=== PATIENT | male | born 1995 ===

== ENCOUNTER 2023-12-02 10:45 | Inpatient (IN) | payer MEDICAID ==
[~2023-12-02] VITALS: Ht 175.3 cm; Wt 66.2 kg
[2023-12-02] MEDS ORDERED: SYMMETREL100 MG PO (11:51)
[2023-12-02] MEDS ORDERED: NEURONTIN100 MG/CAP PO (11:52)
[2023-12-02] MEDS ORDERED: OXYCODONE H5 MG/5 ML PO (11:53)
[2023-12-02] MEDS ORDERED: DESYREL 50MG50 MG PO (11:54)
[2023-12-02] MEDS ORDERED: SEROQUEL 1100 MG/TAB PO (11:54)
[2023-12-02] MEDS ORDERED: TYLENOL 500MG500 MG PO (11:58)
[2023-12-02 15:31] VITALS: BP 127/76; PULSE 80; TEMP 98
[2023-12-02] MEDS ORDERED: Sennosides/Docusate 8.6-50 MG TAB PO PRN (16:15)
[2023-12-02] MEDS ORDERED: Acetaminophen 500 MG TAB PO PRN (16:15)
[2023-12-02] MEDS ORDERED: Polyethylene Glycol 3350 17 GM PDS PO PRN (16:15)
[2023-12-02] MEDS ORDERED: Naloxone 0.4 MG/ML VIAL IV PRN (16:15)
[2023-12-02] MEDS ORDERED: Docusate Sodium 100 MG CAP PO PRN (16:15)
[2023-12-02] MEDS ORDERED: SEROQUEL 2525 MG/TAB PO (16:20)
[2023-12-02] MEDS ORDERED: oxyCODONE Oral Soln 5 MG/5 ML UD PO PRN (16:30)
[2023-12-02 17:00] VITALS: BP_SYST 127
--- NOTE | 2023-12-02 18:10 | NUR ---
PATIENT BLADDER SCANNED AND 663ML FOUND, STRAIGHT CATH AND RECEIVED 600ML. PATIENT TOLERATED WELL.
[2023-12-02 21:00] VITALS: BP_SYST 127
[2023-12-02] MEDS ORDERED: traZODone 50 MG TAB PO SCH (21:00)
[2023-12-02] MEDS ORDERED: Gabapentin 100 MG CAP PO SCH (21:00)
[2023-12-02] MEDS ORDERED: QUEtiapine 100 MG TAB PO SCH (21:00)
--- NOTE | 2023-12-02 22:06 | NUR ---
NURSING SHIFT ASSESSMENT COMPLETED. THE PATIENT WAS ALERT AND ORIENTED TO SELF. THE PATIENT HAS COGNITIVE DEFICITS AND DIFFICULTY WITH WORD FINDING SO IT IS DIFFICULT TO KNOW HOW ORIENTED THE PATIENT IS. WHEN SPEAKING WITH THE PATIENT HE WOULD TALK ABOUT HIS PAST AND PER HIS SPOUSE SOME OF WHAT THE PATIENT SAID WAS CORRECT. THE PATIENT WAS TEARFUL AND STATED THAT "BAD THINGS WERE HAPPENING." THE PATIENT WAS REASSURED THAT HE WAS IN A SAFE PLACE AND THAT HE WAS HERE TO GET BETTER. THE PATIENT DID NOT APPEAR TO BE IN ANY PAIN OR DISCOMFORT. EVENING MEDICATIONS WERE REVIEWED AND THE PLAN OF CARE WAS DISCUSSED. THE SPOUSE IS STAYING THE NIGHT WITH THE PATIENT TONIGHT. BED ALARM ON, BED IN LOW POSITION, PERSONAL BELONGINGS AND CALL LIGHT WITHIN REACH.
--- NOTE | 2023-12-03 01:02 | NUR ---
THE PATIENT WAS BLADDER SCANNED AT 0030. 984 ML OF URINE NOTED ON THE BLADDER SCAN. THE PATIENT WAS STRAIGHT CATHED AND 1100 ML OF CLEAR, YELLOW URINE WAS OBTAINED. THE PATIENT TOLERATED THE PROCEDURE WELL. STERILE TECHNIQUE WAS USED. WILL MONITOR.
[2023-12-03 05:20] VITALS: BP 120/81; PULSE 68; TEMP 97.1
--- NOTE | 2023-12-03 05:45 | NUR ---
THE PATIENT RESTED WELL OVERNIGHT. HIS SPOUSE REMAINED AT THE BEDSIDE. THE BLADDER SCAN THIS MORNING AT 5:15 AM WAS 197 ML. NO STRAIGHT CATH WAS PERFORMED SINCE HIS URINE AMOUNT WAS LESS THAN 400 ML. NURSING WILL CONTINUE TO FOLLOW WITH BLADDER SCANS AND STRAIGHT CATH'S PER ORDERS.
[2023-12-03] MEDS ORDERED: Nicotine 14 MG DAILY PATCH TD SCH (09:00)
[2023-12-03] MEDS ORDERED: QUEtiapine 25 MG TAB PO SCH (09:00)
--- NOTE | 2023-12-03 09:33 | NUR ---
SHIFT ASSESSMENT COMPLETE. VSS. PATIENT UP WORKING WITH OT, AT BEDSIDE. ALL MORNING MEDS GIVEN PER ORDERS. NO COMPLIANTS OR REQUEST FROM PATIENT OR AT THIS TIME.
--- NOTE | 2023-12-03 14:08 | NUR ---
SW met with patient and in room to complete initial assessment for discharge planning. Patient did participate in conversation and was able to answer some questions. Patient's , Kyle ([phone]) answered most questions. Kyle provided copy of temporary Guardianship paperwork that was completed at the original hospital in [place]. Copy of Guardianship paperwork placed on chart. verified that they live in [place] with their 3 year old son. Kyle is 28 weeks with a high risk . She states that patient's father, nAdrea Avalos is very involved and will be helping with patient care. shared that they are moving into Andrea's house so they have help. Andrea's house has wheelchair ramps and no steps within. shared that their rent is paid through an assistance program through January to allow her time to move their belongings. Patient does not have a PCP, uses [facility] in [place]. Patient has multiple DME at home at was for his mother. DME includes: wheelchair, hospital bed, BSC, toilet riser, shower chair and grab bars. shared that patient was applied for SSDI and she has an appointment with Social Security on 12/19/2023. SW discussed notes from interdisciplinary meeting held earlier today with treatment team. All questions answered. Discharge plan: re-eval
[2023-12-03 17:54] VITALS: BP 114/72; PULSE 77; TEMP 98.3
--- NOTE | 2023-12-03 19:00 | NUR ---
Received change of fit report from day shift nurse. Bladder scan and straight performed by off going day shift nurse with report st cath of 650 ml that patient tolerated well as reported by day shift nurse. Patient resting in bed with in room, exit alarm off due to laying in bed with patient at times to help with patient's anxiety and impulsivity as reported by day shift nurse that dept director is aware of activity.
--- NOTE | 2023-12-03 19:49 | NUR ---
BLADDER SCANNED AT 1854 690ML SHOWEN. STRAIGHT CATHED AND RECEIVED 650ML. PATIENT TOLERATED WELL.
--- NOTE | 2023-12-03 20:21 | NUR ---
PATIENT RESTING IN BED, MOVES ALL EXTREMITIES EQUALLY, LEFT FOREARM CAST IN PLACE. PATIENT ON ROOM AIR, IN ROOM. BED ALARM OFF DUE TO IN ROOM, LAYING IN BED WITH PATIENT AT TIMES. CALL LIGHT IN PLACE. STAYS OVERNIGHT IN ROOM WITH PATIENT DUE TO IMPULSIVE BEHAVOIR AND ANXIETY FROM PATIENT IF NOT PRESENT.
[2023-12-04 05:49] VITALS: BP 117/79; PULSE 68; TEMP 96.8
--- NOTE | 2023-12-04 07:32 | NUR ---
Change of shift report given to day shift nurseCamille.
--- NOTE | 2023-12-04 08:00 | NUR ---
SHIFT ASSESSMENT COMPLETE. VSS. PATIENT RESTING IN BED AFTER BREAKFAST. AT BED SIDE. ALL MORNING MEDS GIVEN PER ORDERS. PATIENT STATES YES WHEN ASKED IF BELLY HURTS THIS AM. PATIENT PASSING GAS BUT HAS NOT HAD A BM SINCE 11/29, MEDS GIVEN ON COMPANY MANAGER TO HELP WITH BM. WILL CONTINUE TO MONITOR. GTUBE FLUCHED THIS AM WITH 30ML OF WATER. PATIENT TOLERATED WELL. FALL PRECAUTIONS IN PLACE AND CALL LIGHT IN REACH.
--- NOTE | 2023-12-04 13:37 | NUR ---
Initial visit; Patient quietly stated that he would like prayer and reached for Loss Prevention Representative's hand. prayed and wished patient healing and told him she would come back and look in on him and keep him in her prayers in the mean-time. He thanked .
--- NOTE | 2023-12-04 17:00 | NUR ---
PATIENT BLADDER SCANNED FOUND 663 ML TO BE IN BLADDER. STRAIGHT CATH AND EMPTIED 675. PATIENT TOLERATED WELL.
[2023-12-04 17:52] VITALS: BP 121/76; PULSE 84; TEMP 98.5
--- NOTE | 2023-12-04 19:27 | NUR ---
RECEIVED CHANGE OF SHIFT REPORT FROM DAY SHIFT NURSE. PATIENT RESTING IN BED, EXIT ALARM ON, CALL LIGHT WITHIN PATIENT'S REACH. NO FAMILY IN ROOM, PATIENT DENIES ANY PAIN AT THIS TIME.
--- NOTE | 2023-12-04 20:00 | NUR ---
Patient cooperative at this time, denies any needs. No visitors present at this time. Resting in bed with exit alarm on, call light within patient's reach.
--- NOTE | 2023-12-04 23:06 | NUR ---
Patient's present, to stay the night. Patient slept through bladder scan and straight cath, no observed signs of discomfort, patient did not wake during bladder scan/straight cath procedure. Bed exit alarm on, call light within patient and 's reach.
--- NOTE | 2023-12-05 03:12 | NUR ---
Patient resting in bed, eyes closed with even/nonlabored breathing observed. Bed exit alarm on, call light within reach of patient or patient's .
[2023-12-05 05:33] VITALS: BP 114/77; PULSE 73; TEMP 98.1
--- NOTE | 2023-12-05 07:23 | NUR ---
Change of shift report given to day shift nurseCamille.
--- NOTE | 2023-12-05 07:55 | NUR ---
SHIFT ASSESSMENT COMPLETE. VSS. PATIENT AMBULTED TO RECLINER FOR BREAKFAST WITH 1 ASSIST. AT BEDSIDE. ALL MORNING MEDS GIVEN PER ORDERS. PATIENT STATES NO PAIN WHEN ASKED. FALL PRECAUTIONS IN PLACE AND CALL LIGHT IN REACH.
[2023-12-05] MEDS ORDERED: Lidocaine 2% (20 MG/ML) 20 ML UROJET UR PRN (11:15)
--- NOTE | 2023-12-05 11:51 | NUR ---
BLADDER SCANED @1145 523ML. PATIENT STRAIGHT CATH 500ML OUT. PATIENT TOLERATED WELL.
--- NOTE | 2023-12-05 11:52 | NUR ---
GTUBE FLUSHED W/ 30ML WATER. PATIENT TOLERATED WELL.
--- NOTE | 2023-12-05 13:45 | NUR ---
burlap worker met with pt who was sleeping and , Sheree to assess for any needs. She reports no needs from social worker health services at this time. Discharge Plan: re-eval
--- NOTE | 2023-12-05 13:50 | NUR ---
PATIENT SLEEPING WITH AT BEDSIDE. BED ALARM ON AND CALL LIGHT IN REACH.
--- NOTE | 2023-12-05 15:20 | NUR ---
Admission QIM scores were reviewed by the team. Code of 88 chosen for oral hygiene was determined by team discussion to be the most usual performance before interventions for this patient during the assessment period. Code of 88 chosen for toileting hygiene was determined by team discussion to be the most usual performance for this patient during the discharge assessment period. Code of 6 chosen for rolling left to right was determined by team discussion to be the most usual performance before interventions for this patient during the assessment period. Code of 4 chosen for sit to lying was determined by team discussion to be the most usual performance before interventions for this patient during the assessment period. Code of 4 chosen for lying to sitting side of bed was determined by team discussion to be the most usual performance before interventions for this patient during the assessment period. Code of 1 chosen for sit to stand was determined by team discussion to be the most usual performance for this patient during the discharge assessment period. Code of 1 chosen for chair to bed was determined by team discussion to be the most usual performance for this patient during the discharge assessment period.--Dian Woods, PD
--- NOTE | 2023-12-05 15:30 | NUR ---
PATIENT STILL SLEEPING AT THIS TIME. STILL AT BEDSIDE. BED ALARM ON AND CALL LIGHT IN REACH
--- NOTE | 2023-12-05 16:22 | NUR ---
BLADDER SCANNED PATIENT 331ML, NO ACTION NEEDED ACCORDING TO ORDERS WILL BLADDER SCAN AGAIN IN A FEW HOURS.
[2023-12-05 17:15] VITALS: BP 116/76; PULSE 89; TEMP 98.5
--- NOTE | 2023-12-05 21:30 | NUR ---
patient lying in bed, alert and oriented x4 with some occasional forgetfullness. ambulated to bathroom x1 assist with gait belt, slight lean towards right side, large semiformed brown BM passed with some effort, pt refused offered stool softner at this time. bladder scan resulted with 557ml shown, pt reports feeling pressure and ready for it to be gone, straight cath performed, 500ml drained from bladder. PEG tube site CDI. Bandaid to tracheal are of the neck is CDI. pt has no further needs, questions, or concerns at this time. at bedside. fall precautions in place, call light within reach. will continue to monitor.
[2023-12-06 05:38] VITALS: BP 110/71; PULSE 73; TEMP 97.8
--- NOTE | 2023-12-06 16:15 | NUR ---
PT REPORTED TO INSTRUMENT MECHANICS SUPERVISOR AND PCT THAT HE FELT LIKE HE WAS DYING. WHEN ASKED WHY HE FELT THAT WAY HE STATED BECAUSE OF HIS FAMILY. HE STATED THAT HIS FAMILY MAKES COMMENTS THAT MAKE HIM FEEL LIKE HE IS DYING AND LIKE THEY WANT HIM TO . PT WOULD NOT GO INTO FURTHER DETAIL ABOUT THIS. INSTRUMENT MECHANICS SUPERVISOR ASKED PATIENT IF HE DID NOT WANT THEM TO VISIT SINCE THEY MADE HIM FEEL THIS WAY AND TOLD HIM THAT IT IS HIS RIGHT TO DECIDE WHO CAN AND CAN'T VISIT HIM. HE STATED THAT HE DID NOT WANT THEM TO VISIT FOR A FEW DAYS. INSTRUMENT MECHANICS SUPERVISOR TOLD HIM THAT THAT WAS OKAY AND TO JUST INFORM STAFF WHEN/IF HE WANTED THEM TO START VISITING AGAIN DOWN THE ROAD. CHARGE NURSE WAS NOTIFIED AND REGISTARTION WAS MADE AWARE WELL. PT ALSO EXPRESSED CONCERNS ABOUT HIS PROGRESS WHILE BEING HERE SO FAR AND THAT HE FEELS LIKE HE IS GETTING WEAKER INSTEAD OF STRONGER.
[2023-12-06 18:00] VITALS: BP 124/79; PULSE 81; TEMP 98.2
--- NOTE | 2023-12-06 22:06 | NUR ---
patient lying in bed alert and oriented x4 with some occasional forgetfullness. denies chest pain and shortness of breath. 2030- pt up to bathroom, luna noted to be pulled out and knotted in multiple places, pt verbally confirmed actions, educated pt on luna purposes and placing a new luna, pt refused new luna cath. bladder scan showed 52 ml left over after luna being pulled out. PEG tube CDI, flushed with 120 mls or free water. ambulated to bathroom x1 assist and gait belt, unsteady gait, small bowel movement performed. 2100- Shameka, METAL DRESSER notified of pt pulling luna cath out and refusing new one place, orders to continue bladder scans and monitoring urine retention at this time. cast to left forearm intact, CDI. pt has no further needs, questions or concerns at this time. fall precautions in place, call light within reach. will continue to monitor.
[2023-12-07 05:29] VITALS: BP 116/74; PULSE 69; TEMP 97.7
--- NOTE | 2023-12-07 11:45 | NUR ---
PT HAD REPORTED YESTERDAY THAT HE DID NOT WANT VISITORS UNTIL FURTHER NOTICE. PATIENT THEN EXPRESSED THIS SAME WISH AGAIN THIS MORNING. ER ADMISSIONS DESK HAD BEEN NOTIFIED BY CHARGE NURSE ON 12/06/23. ER ADMISSIONS APPARENTLY DID NOT PASS THIS ALONG AND ALLOWED PT PARENTS TO COME UP TO THE FLOOR. HIDE AND SKIN COLERER TOLD PARENTS BEFORE THEY ENTERED THE ROOM THAT HE DID NOT WANT VISITORS AT THIS TIME AND THAT HIDE AND SKIN COLERER HAD SANCHEZ DTHE TO TELL HER THIS PRIOR. THEY DID NOT CARE AND WENT INTO THE ROOM ANYWAY. CHARGE NURSE WAS NOTIFIED. VICKY FROM SECURITY WAS ON THE FLOOR ALREADY AT THIS TIME AND DOING ROUNDS. HIDE AND SKIN COLERER TOLD HIM ABOUT THE SITUATION. VICKY TRIED TO TALK TO THE FAMILY ABOUT THIS AND THEY BECAME VERY HOSTILE AND THREATENED TO REMOVE PATIENT FROM THE FACILITY. VICKY SAID TO ALLOW THEM TO STAY AT THIS TIME HE ASKED THE PATIENT AND HE SAID THEY COULD STAY. PATIENT SEEMS VERY HESITANT IN HIS DECISION. PATIENT SEEMED LIKE HIS DECISION TO SAY YES WAS FORCED DUE TO PARENTS ALREADY BEING PRESENT IN THE ROOM. PATIENT PARENTS SHOW NO REGARD FOR HIS OWN MENTAL CAPACITY OR CHOICES. PATIENT FATHER CALLED PT AND COMPLAINED ABOUT THE SITUATION. THEN PT FATHER CAME OUT TO THE DESK TO CONFRONT HIDE AND SKIN COLERER ABOUT HAVING SECURITY COME UP TO THE ROOM. HIDE AND SKIN COLERER INFORMED FATHER THAT HIDE AND SKIN COLERER DID NOT CALL SECURITY AND THAT HE WAS ALREADY ON THE FLOOR, HIDE AND SKIN COLERER ONLY TOLD SECURITY ABOUT THE SITUATION AND HE CAME TO TALK TO THEM. THAT WAS IT. PT FATHER MADE THREATS TO PULL PATIENT OUT OF THE REHAB UNIT RELATED TO THIS. FLAMER SEALER MAYDA AND POISER IVON WERE MADE AWARE OF THIS AND ARE IN SPEAKING WITH THE PATIENT AND THE FAMILY AT THIS TIME.
--- NOTE | 2023-12-07 13:03 | NUR ---
SW informed early this morning by RN that patient appears upset today and is stating he doesn't want his family to visit. RN stated that patient was sleeping at that time. SW informed RN that visit would be made later in the day to allow patient to rest. SW entered unit to witness patient's father arguing with RN at desk and threatening to remove patient from hospital. DOMINIC spoke with RN who stated that parents were allowed up to room by ED admissions and insisted on going into patient's room against RN informing them of patient's requests earlier today. DOMINIC asked that Airborne And Air Delivery Specialist be called for assistance. SW entered room where patient's father was standing next to bed talking with patient. His finance was present in room as well. Patient looked at SW and stated "my family can come any time. I'm sorry." SW provided support to patient and informed him that if he wants to be left alone and rest at any time we can accomodate this need with DO NOT DISTURB sign for door. Patient voiced understanding. Father introduced himself to DOMINIC and stated his belief that patient was upset because had gone home for the weekend to be with their son and prepare for doctor's appointment for herself. SW explained that the goal is for patient to not be upset and to be allowed to rest. Father voiced his frustration with RN and stated "she's rude". SW explained that the RN was advocating for her patient and supporting his wishes. Patient calm and stating father can stay for visit.
[2023-12-07 16:08] VITALS: BP 125/78; PULSE 81; TEMP 98.4
--- NOTE | 2023-12-07 16:40 | NUR ---
AROUND 1600 PT HAD AN UNASSISTED FALL DIRECTOR OF RADIOLOGY WAS AT THE NURSES STATION DESK AND HEARD THE BED ALARM START TO BEEP, IMMEDIATLY GOT UP AND WENT TO PT ROOM. DIRECTOR OF RADIOLOGY CROSSED THE THRESHOLD OF THE DOOR THE PT WAS ALREADY STANDING AND FALLING, PT FELL BACK AGAINST THE WALL AND HIT HIS HEAD ON THE WALL. DIRECTOR OF RADIOLOGY TOLD PATIENT TO STAY ON THE FLOOR WHILE HELP CAME TO GET BACK INTO BED. DIRECTOR OF RADIOLOGY THEN CALLED CHARGE NURSE TO SEND PCT TO ASSIST- WHILE THIS WAS HAPPENING PT SAT UP ON HIS KNEES, DIRECTOR OF RADIOLOGY TOLD HIM TO JUST STAY STILL, PT THEN FELL OVER BACK ONTO THE FLOOR. DIRECTOR OF RADIOLOGY ASKED PT WHERE HE WAS TRYING TO GO AND HE STATED "TO THE COUCH" REFERENCING TO BENCH/COUCH IN ROOM IN FRONT OF THE WINDOW. PCT CAME AND ASSISTED DIRECTOR OF RADIOLOGY WITH GETTING THE PT OFF THE FLOOR AND INTO THE RECLINER-CHAIR ALARM WAS PRESENT AND ARMED. VITAL SIGNS WERE THEN TAKEN AND FOUND TO BE IWTHIN NORMAL LIMITS. MACHINE PECAN GATHERER WAS CONTACTED AND SO WAS THE HIOOSPITALIST. PT OFFERED NO COMPLAINTS OF PAIN ANYWHERE AND HAD NO PHYSICAL INJURIES. NO NEW ORDERS AT THIS TIME FROM THE HOSPITALIST. NURSING TEAM DECIDED TO INITIATE A TELESITTER.
--- NOTE | 2023-12-07 16:49 | NUR ---
PT HAS BEEN REFUSING BLADDER SCANNING AND STRAIGHT CATHS THROUGHOUT THE SHIFT. HE DID URINATE ON HIS OWN ONCE THIS SHIFT AND GOT OUT 900ML. STAFF HAS ENCOURAGED HIM TO TRY TO URINATE ON HIS OWN MORE IF ABLE, BUT HE HAS REFUSED.
[2023-12-07 17:02] VITALS: BP 112/76; PULSE 80; TEMP 98.1
--- NOTE | 2023-12-07 19:40 | NUR ---
DURING BEDSIDE REPORT, URINE RETENSION WAS VOICED BY DAYSTXFT NURSE, RUTHIE. 600MLS WAS OBSERVED DURING BLADDER SCAN. HOWEVER ADMIST REPORT, GLADIS URINATED AND SATURATED ENTIRE BED. PATIENT WAS COOPERATIVE AND ATTEMPTED SELF CARES. FULL LINEN AND PERICARE PERFORMED.
--- NOTE | 2023-12-07 19:43 | NUR ---
PATIENT HAD BOWEL MOVEMENT THAT WAS SOFT AND FORMED. HE DID NOT UTILIZE CALL LIGHT BUT ATTEMPTED TO GIVE SELF CARES INDEPENDENTLY. HE APOLOGIZED AND THANKED NURSING STAFF AND PCT NUMEROUS TIMES. ASSISTED WITH PERICARE AND LINEN CHANGE. THE DESIRE FOR PATIENT TO BE SELF SUFFICIENT IS EVIDENT, UNFORTUNATELY, MOTOR COORDINATION AND COGNITION IMPAIRED.
[2023-12-07 20:24] VITALS: BP 119/82; PULSE 81; TEMP 98.6
--- NOTE | 2023-12-07 20:26 | NUR ---
AT 20:00 THIS NURSE OBSERVED PATIENT TRING TO GET OUT OF BED WHILE AT NURSE'S STATION, BEFORE BED ALARM WAS SOUNDED. THIS NURSED YELLED AT PATIENT, "DO NOT GET OUT OF BED." AND RAN INTO ROOM. UNFORTUNATELY, PATIENT FELL AND STRUCK HEAD ON BEDSIDE RECLINER. SMALL ABRASION NOTED OVER RT EYE. CALL IMMEDIATELY PLACED TO CHARGE NURSE, TOBACCO WETTER AND HOSPITALIST ZANA. TORB FOR STAT CT AND A ONE-ON-ONE SITTER TELE SITTER DID NOT NOTIFY THIS NURSE OR SOUND ALARM PATIENT WAS ATTEMPTING TO EXIT BED. ALL NECESSARY FALL PRECAUTIONS WERE IN PLACE THAT DID NOT CAUSE RESTRAINT.
--- NOTE | 2023-12-07 20:39 | NUR ---
AT 20:15 RECIEVED CALL FROM TELE SITTER STATING, "WE DID SEE HIM GET OUT OF BED, BUT HE IS SO FAST WE DID NOT HAVE TIME TO HIT ALARM." THIS CALL PROCEEDED FALL BY 15 MINUTES.
[2023-12-07 21:24] VITALS: BP 119/82; PULSE 81; TEMP 98.6
--- NOTE | 2023-12-07 21:38 | NUR ---
CALL RECIEVED FROM HOSPITALIST ZANA WITH UPDATE ON CT GIVEN. NO NEW ORDERS
--- NOTE | 2023-12-07 22:42 | NUR ---
CALL PLACED TO JUAN. UPDATE GIVEN. SHE IS 6 MONTHS AND THIS NURSE VOICED CONCERNS PATIENT MOTOR COORDINATION IMPAIRED AND MAY RESULT IN A FALL ONTO HER. PATIENT ASSURED THIS NURSE SHE HAD BEEN AT HIS BEDSIDE DURING MOST DAYS AND HER SAFETY IS NOT AN ISSUE SHE STATED, "HE LISTENS TO ME." FURTHER INQUIRY REVEALED THAT JUAN ALSO HAS SUPPORT AT HOME SISTER IS HELPING WITH CARE OF HER OTHER CHILD. JUAN PLANS TO VISIT [facility] FOLLOWING DOCTOR APPT.
--- NOTE | 2023-12-08 00:27 | NUR ---
PATIENT SLEEPING SOUNDLY. NO NEW OCCURENCES OF IMPULSIVITY AND ATTEMPTS TO GET OUT OF BED SINCE 21:30. PER COMPUTER SCIENCE PROFESSOR AUTHORIZATION, ONE-TO-ONE SITTER RELEASED, VIRTUAL SITTER STILL ACTIVATED AND MONITOR IN PLACE. BEDALARM ON.
--- NOTE | 2023-12-08 02:00 | NUR ---
ROUNDED ON PATIENT. GLADIS IS SLEEPIMG ON LT SIDE. BREATHING IS UNLABORED WITH RR 15. NO VISABLE SIGNS OF DISTRESS.
--- NOTE | 2023-12-08 03:00 | NUR ---
PEG TUBE PLACEMENT CHECKED WITH AIR AUSCULTATION AND GASTRIC RESIDUAL. FLUSHED WITH 30 ML WARM TAP WATER. ABDOMINAL BINDER SOILED UNDERSIDE WITH GASTRIC CONTENTS, WIPED CLEAN. EXTERNAL BUMPER MISSING DRAINAGE SPONGE AND INSERTION SITE SLIGHTLY PINK. CLEANSED WITH CHLORHEXIDINE SWAB AND PLACED STERILE DRAINAGE SPONGE. GASTRIC TUBE NOTED AT 4 BETH. CLAMP- PURPLE PORT CRACKED. RECLAMPED PEG AND REAPPLIED ABDOMINAL BINDER. PATIENT TOLERATED WELL. BEDALARM ON.
--- NOTE | 2023-12-08 04:00 | NUR ---
BLADDER SCANNED-359ML. CHECK AND CHANGE WITH PERICARE. TRIED TO ENCOURAGE PATIENT TO VOID IN URINAL, PATIENT AROUSES TO VOICE BUT FALLS BACK TO SLEEP IMMEDIATELY. PATIENT HAS HAD 3 COMPLETE LINEN CHANGES D/T INCONTINENCE, CURRENTLY THIS NURSE HAS NO CONCERNS THAT PATIENT HAS URINARY RETENTION.
[2023-12-08 04:33] VITALS: BP 111/68; PULSE 54; TEMP 97.4
[2023-12-08 05:56] VITALS: BP 102/65; PULSE 55
--- NOTE | 2023-12-08 06:09 | NUR ---
PATIENT AROUSES TO VOICE. ENCOURAGED TO VOID IN URINAL. WHEN ASKED IF PATIENT HAD TO PEE, PATIENT OPENED EYES AND SHOOK HEAD "NO". VS ARE WNL.
--- NOTE | 2023-12-08 09:06 | NUR ---
PT BLADDER SCAN SHOWED 447 IN. PT OFFERED URINAL, ATTEMPTED TO VOID WITH NO RESULTS. PT REFUSED STRAIGHT CATH AT THIS TIME. WILL RE-EVALUATE AFTER THERAPY. PT REFUSED BREAKFAST, BUT AFTER MULTIPLE PROMPTING, DID DRINK MILK AND EAT FRUIT WITHOUT DIFFICULTY. PT CONTINUES TO DENY PAIN, ORIENTED TO SELF ONLY. BED ALARMS ON.
--- NOTE | 2023-12-08 10:44 | NUR ---
PT RETURNED FROM THERAPY, SITTING IN CHAIR, CHAIR ALARM ON. PT PUSHED CALL LT BUT DENIES NEEDS. PT IS NOT ATTEMPTING TO GET OUT OF BED. PT GIVEN PUTTY FOR DISTRACTION, CAN REPORT TO THIS NURSE HOW HE HELPED MAKE IT THE DAY BEFORE. PT DENIES PAINS, DENIES OTHER NEEDS.
[2023-12-08 12:06] LABS: BASO % 0.7 % (0.0-2.0); EOS # 0.3 K/mm3 (0.0-0.7); EOS % 4.9 % (0.0-4.0); GRAN # 3.3 K/mm3 (1.4-6.5); GRAN % 54.9 % (42.2-75.2); HEMOGLOBIN 11.8 g/dl (13.5-18.0); LYMPH # 1.9 K/mm3 (1.2-3.4); LYMPH % 31.7 % (20.0-51.0); MEAN CELL VOLUME 86 fl (80.0-100.0); MEAN CORPUSCULAR HEMOGLOBIN 28 pg (27-31); MEAN CORPUSCULAR HGB CONC 33 g/dl (33.0-37.0); MEAN PLATELET VOLUME 11.3 fl (7.4-10.4); MONO # 0.5 K/mm3 (0.1-0.6); MONO % 7.5 % (1.7-9.3); PLATELET COUNT 244 K/mm3 (130-400); RED BLOOD COUNT 4.17 M/mm3 (4.20-5.60); REDCELL DISTRIBUTION WIDTH-CV 12.9 % (11.5-14.5)
[2023-12-08 12:07] LABS: HEMATOCRIT 35.8 % (42.0-52.0)
[2023-12-08 12:12] LABS: CALCIUM 10.1 mg/dL (8.4-10.2); CREATININE, serum 0.89 mg/dL (0.72-1.25); POTASSIUM 3.9 mEq/L (3.5-4.5)
--- NOTE | 2023-12-08 12:14 | NUR ---
PT SET OFF ALARM, STOOD UP QUICKLY AND WALKING TO BR, UNSTEADY GAIT. NURSE AT PT'S SIDE JOCE, ASSISTED PT TO BR. PT VOIDED GREATER THAN 1000 ML CLOUDY YELLOW URINE. PT APOLOGIZES FOR GETTING UP WITHOUT CALLING, REASSURED BY STAFF, ASSISTED BACK TO BED. FAMILY AT BEDSIDE.
[2023-12-08 13:21] LABS: COLLECTION METHOD CLEAN CATCH
[2023-12-08 13:39] LABS: URINE APPEARANCE CLOUDY (CLEAR/HAZY); URINE BLOOD NEGATIVE (NEGATIVE); URINE COLOR YELLOW (YELLOW); URINE GLUCOSE NEGATIVE (NEGATIVE); URINE KETONE NEGATIVE (NEGATIVE); URINE NITRATE NEGATIVE (NEGATIVE); URINE PROTEIN(semi-quant) NEGATIVE (NEGATIVE); URINE UROBILINOGEN 0.2 E.U/dL (0.2-1.0)
[2023-12-08] MEDS ORDERED: Cefuroxime 250 MG TAB PO SCH (15:00)
--- NOTE | 2023-12-08 15:46 | NUR ---
SW met with patient and to check in after weekend. Patient resting in bed and appears more calm today. He apologized to this SW for getting up. Patient stated he is tired from therapy. Patient encouraged to continue to work with therapy so he can go home. denies any needs or concerns at this time. Discharge plan: re-eval
[2023-12-08 16:43] VITALS: BP 125/80; PULSE 75; TEMP 98.3
--- NOTE | 2023-12-08 17:52 | NUR ---
PT'S REMAINS AT BEDSIDE, REPORTS PLAN TO STAY THE NIGHT WITH PT. PT IS MORE CALM, EATS BETTER WHEN IS PRESENT. PT CONTINUES TO PERIODICALLY ATTEMPT TO GET OUT OF BED WITHOUT USING CALL LT. HITS CALL LIGHT PT STARTS TO ATTEMPT TO GET OUT OF BED. PT IN BED, ALARM ON.
--- NOTE | 2023-12-08 19:12 | NUR ---
RECEIVED CHANGE OF SHIFT REPORT FROM DAY SHIFT NURSE. PATIENT RESTING IN BED, PRESENT IN ROOM AT BEDSIDE. PATIENT DENIES ANY NEEDS AT THIS TIME. EXIT ALARM ON, CALL LIGHT WITHIN REACH OF PATIENT AND SPOUSE.
--- NOTE | 2023-12-08 20:00 | NUR ---
PATIENT COOPERATIVE, RESTING IN BED, ANSWERS ORIENTATION QUESTIONS OF NAME AND APPROPRIATELY. EXIT ALARM ON, CALL LIGHT WITHIN PATIENT'S AND SPOUSE'S REACH. PATIENT AND SPOUSE DENY ANY NEEDS OR COMPLAINTS AT THIS TIME. CAST TO LEFT WRIST CDI AND IN PLACE. PEG TUBE SITE WITH SMALL AMOUNT OF YELLOWISH DRAINAGE, PEG TUBE FLUSHED WITH WATER PER HOSP P/P WITH PATIENT TOLERATING PROCEDURE WITH NO COMPLAINTS. AT BEDSIDE, VERBALIZED THAT SHE WILL BE STAYING OVERNIGHT.
[2023-12-09 05:36] VITALS: BP 113/72; PULSE 68; TEMP 98.1
--- NOTE | 2023-12-09 07:14 | NUR ---
CHANGE OF SHIFT REPORT GIVEN TO DAY SHIFT NURSELOUIE.
--- NOTE | 2023-12-09 08:35 | NUR ---
PT RESTING IN BED, ALERT AND ORIENTEDX2. NO COMPLAINTS OF PAIN AT THIS TIME. ASSESSED AND GAVE MORNING MEDS. FLUSHED PEG TUBE. IS AT BEDSIDE. NO OTHER COMPLAINTS AT THIS TIME. CALL LIGHT WITHIN REACH.
--- NOTE | 2023-12-09 16:45 | NUR ---
BLADDER SCAN SAID GREATER THAN 500. STRAIGHT CATHED PT. GOT 425 ML OF URINE OUT.
[2023-12-09 17:05] VITALS: BP 111/71; PULSE 86; TEMP 98.1
--- NOTE | 2023-12-09 18:46 | NUR ---
RECEIVED CHANGE OF SHIFT REPORT FROM DAY SHIFT NURSE.
[2023-12-10 05:03] VITALS: BP 130/80; PULSE 64; TEMP 97.7
--- NOTE | 2023-12-10 06:58 | NUR ---
CHANGE OF SHIFT REPORT GIVEN TO DAY SHIFT NURSEDERIAN.
--- NOTE | 2023-12-10 08:30 | NUR ---
Pt resting in bed with no pain at this time. Pt drowsy upon first entering room. Pt slowly became alert and oriented to self and situation only. Pt reminded of place and time, will continue to monitor orientation. at bedside, pt tolerating deit well, PEg tube flushed and gauze changed. Abdominal binder in place, bandaid to prev trach site clean and dry, cast to right forearm and brace to left wrist in place. Will continue to monitor.
--- NOTE | 2023-12-10 12:10 | NUR ---
Pt assisted to bathroom and voided at this time. Will continue to monitor.
--- NOTE | 2023-12-10 14:20 | NUR ---
SW attended team conference meeting today. Discussed patient's progress with therapy and barriers. SW met with patient and to discuss notes from meeting. Patient voiced "I'm good" and voices feeling good about his progress. denies any questions or concerns at this time. SW discussed need for family meeting to be scheduled. states patient's father works and has a break at noon and around 1400. DOMINIC spoke with Dian, Director of [facility], to inquire about staff schedules next week due to holiday. Family meeting pending. Discharge plan: re-eval
[2023-12-10 18:49] VITALS: BP 111/72; PULSE 75; TEMP 98.8
--- NOTE | 2023-12-10 19:51 | NUR ---
RECEIVED CHANGE OF SHIFT REPORT FROM DAY SHIFT NURSE. PATIENT RESTING IN BED, EXIT ALARM ON, CALL LIGHT WITHIN PATIENT'S REACH.
--- NOTE | 2023-12-10 20:00 | NUR ---
DECREASED ROM TO LEFT WRIST DUE TO CAST, ABLE TO WIGGLE FINGERS TO LEFT HAND WITH NO PROBLEM. OBSERVED KAY HANDS SQUEEZE WITH FINGERS EQUALLY, DENIES NUMBNESS/TINGLING TO BUE AND BLE. ABLE TO MOVE BLE ON SPONTANEOUSLY. OBSERVED GAIT WITH WALKING TO BATHROOM UNSTEADY, REQUIRES MAX ASST X1 WITH GAITBELT BY STAFF WHEN WALKING WITH PATIENT TO AND FROM BATHROOM. BED EXIT ALARM ON WHEN RESTING IN BED WITH CALL LIGHT WITHIN PATIENT'S REACH. OUT OF ROOM DURING REPORT BUT RETURNED TO ROOM AFTER HS MEDICATIONS GIVEN.
[2023-12-11 05:40] VITALS: BP 117/78; PULSE 56
--- NOTE | 2023-12-11 07:29 | NUR ---
CHANGE OF SHIFT REPORT GIVEN TO DAY SHIFT NURSEDERIAN.
--- NOTE | 2023-12-11 08:00 | NUR ---
Pt resting in bed with no pain, drowsy and unwilling to answey orientation questions at this time. Pt tolerating deit well, at bedside, unsteady gait with SBA and gait belt to bathroom. Pt requires encouragement to void in bathroom, bladder scans chnaged to PRN. PEG tube flushes well and remains clamped. No needs at this time, will continue to monitor.
--- NOTE | 2023-12-11 15:52 | NUR ---
DOMINIC was instructed to secure family meeting time for December 14- or the at 930am or 1pm. DOMINIC met with and pt who was alert during this time. , Sheree reports pt's father works M-F 530am-330pm and would like to participate. DOMINIC proposed the above times and Sheree questioned 2pm as this is when he has a break at work. DOMINIC discussed with Director Dian who was agreeable to 12/16/23 at 2pm. DOMINIC discussed with pt and who are agreeable. Sheree states she will try to have pt's father come in person. Pt was mumbling some states throughout that do not often make sense. No further needs. Discharge Plan: re-eval
[2023-12-11 17:02] VITALS: BP 126/82; PULSE 79; TEMP 98.2
--- NOTE | 2023-12-11 20:00 | NUR ---
Patient in bed aggitated. Patient is trying to pull out PEG tube, is helping trying to reorientate him as well as staff. Provided patient with evening meds and placed a drain gauze at insertion site and patient calmed down. States he is in pian but unable to communicate where clearly. PRN pain meds given. Assessment complete. Call light and persoan items in reach. Bed in low position and bed alarm on. Tele sitter at bedside.
[2023-12-11 21:47] VITALS: BP 116/74; PULSE 79; TEMP 98.3
--- NOTE | 2023-12-12 11:09 | NUR ---
Patient assessment completed at approximately 0930. Pt alert. Oriented to self, , place but not month/year. Reorients easily. Conversation appropriate. Speaks with a Albanian accent. Reported pain 6/10. Tylenol administered and now rates pain 2/10. Abdominal binder in place. Peg tub drain gauze changed after shower with OT. Patient voiding without difficulty. at bedside. Fall precautions in place. Telesitter in place.
[2023-12-12 13:24] LABS: ARTERIAL BLD GAS O2 SATURATION 97.3 % (92-100); ARTERIAL BLD GAS TCO2 CT 24.6; ARTERIAL BLOOD GAS BASE EXCESS 0.5 (-2-2); ARTERIAL BLOOD GAS HCO3 23.6 meq/L (22-26); ARTERIAL BLOOD GAS PO2 96.6 mmHg (80-100); ARTERIAL BLOOD GAS pH 7.47 (7.35-7.45)
--- NOTE | 2023-12-12 13:25 | NUR ---
Hospitalist at bedside doing rounding @1310. SOULEYMANE Herman notifies this nurse that she is having a difficult time arousing patient. Upon entering room, patient is noted to be resting in bed with eyes closed. Respirations even and unlabored. Pt does not open eyes to verbal or tactile stimuli- however, patient responds when cool wash cloth placed on forehead- a/o. Blood sugar 103. Vitas WNL- see flowsheet. Pt answers questions appropriately. Dr. Jung also presented to bedside for evaluation. Labs ordered and rec'd. CT aware of new order. at [facility].
[2023-12-12 13:42] LABS: BASO # 0.1 K/mm3 (0.0-0.2); BASO % 0.5 % (0.0-2.0); EOS # 0.3 K/mm3 (0.0-0.7); EOS % 2.7 % (0.0-4.0); GRAN # 6.9 K/mm3 (1.4-6.5); GRAN % 67.4 % (42.2-75.2); HEMOGLOBIN 11.4 g/dl (13.5-18.0); LYMPH # 2.3 K/mm3 (1.2-3.4); LYMPH % 22.2 % (20.0-51.0); MEAN CELL VOLUME 86 fl (80.0-100.0); MEAN CORPUSCULAR HEMOGLOBIN 29 pg (27-31); MEAN CORPUSCULAR HGB CONC 34 g/dl (33.0-37.0); MONO # 0.7 K/mm3 (0.1-0.6); MONO % 6.7 % (1.7-9.3); PLATELET COUNT 189 K/mm3 (130-400); RED BLOOD COUNT 3.97 M/mm3 (4.20-5.60); REDCELL DISTRIBUTION WIDTH-CV 13.5 % (11.5-14.5)
[2023-12-12 13:58] LABS: ALBUMIN 3.5 g/dL (3.5-5.0); BILIRUBIN,TOTAL 0.2 mg/dL (0.2-1.2); CALCIUM 8.7 mg/dL (8.4-10.2); CREATININE, serum 0.84 mg/dL (0.72-1.25); TOTAL PROTEIN 6.9 g/dl (6.2-8.1)
[2023-12-12 16:31] LABS: TRICYCLIC ANTIDEPRESS URINE POSITIVE (NEGATIVE)
--- NOTE | 2023-12-12 16:32 | NUR ---
Pt awake, resting in bed. Dr. Piper and SOULEYMANE Herman aware of CXR, CT, ABG and lab results. Pt denies pain.
--- NOTE | 2023-12-12 16:34 | NUR ---
Received bedside report form KENNETH Arias. No needs at this time. at bedside. Call light in reach and bed alarm on.
[2023-12-12 16:35] VITALS: BP 102/61; PULSE 70; TEMP 98.5
[2023-12-12 18:50] VITALS: BP_SYST 102
--- NOTE | 2023-12-12 21:40 | NUR ---
Patient resting in bed. Denies any pain or needs. Assessment complete. PEG tube flushes easliy without complications. ABD binder got wet after incontinent episode. Replaced with 6in ABD wrap and sent binder down to wash. Call light and personal items in reach. Bed in low position and bed alarm on. Tele sitter in place.
[2023-12-13 05:39] VITALS: BP 119/79; PULSE 72; TEMP 98.5
--- NOTE | 2023-12-13 09:07 | NUR ---
Pt resting in bed with no pain at this time, a/o x4, tolerating deit well. Hard cast to left wrist CDI, bandiad to prev trach site clean and dry, ABD binder inplace, PEG tube flushing well and remains clamped. Pt ambulating to bathroom with SBA and gait belt, unsteady gait. Tellesitter in room, pt has not attempted to exit bed this shift. No needs at this time, will continue to monitor.
[2023-12-13 16:33] VITALS: BP_SYST 119
--- NOTE | 2023-12-13 16:42 | NUR ---
This nurse at bedside talking with patient when patient begins to express thoughts of dying. Pt states he has dreams that tell him to kill himself. Pt denies having a plan. Pt inconsistent in reponses and emotions unstable fluctuating between positive and negative attitudes with intermittent confusion. Dr Jung notified and no new orders at this time. Will continue to monitor.
[2023-12-13 18:22] VITALS: BP 119/73; PULSE 95; TEMP 98.7
[2023-12-13 18:40] VITALS: BP_SYST 119
--- NOTE | 2023-12-13 19:15 | NUR ---
Patient resting in bed. Denies any pain or needs at this time. Provided patient with word puzzles to work on. Assessment complete. Assissted patient to bathroom and back to bed. PEG tube flushes easily without complications. Call light and personal items in reach. Bed in low position and bed alarm on. Tele sitter in room.
[2023-12-14 06:10] VITALS: BP 116/75; PULSE 71; TEMP 98.2
--- NOTE | 2023-12-14 06:45 | NUR ---
Pt laying in bed sleeping. Call light in reach and bed alarm on.
--- NOTE | 2023-12-14 08:50 | NUR ---
Pt laying in bed. Assessment complete. Pt oriented to self, reoriented to day and time of year. Flushed PEG with 30 mL of water. No issues. Pt denies pain, n/v, headache. No further needs. Call light in reach and bed alarm on.
[2023-12-14 17:50] VITALS: BP 123/61; PULSE 91; TEMP 98.5
--- NOTE | 2023-12-14 18:24 | NUR ---
Pt feels like he has to urinate. Has attempted multiple times throughout the day. Attempted this evening, no success. Palpable bladder, Pt states not uncomfortable, but feels like he needs to pee. Bladder scanned - >634 cc. Pt willing to try urinating standing up with urinal.
--- NOTE | 2023-12-14 18:29 | NUR ---
Pt voided: 775 cc yellow, clear urine. Pt laying in bed. Call light in reach. Bed alarm on. at bedside.
[2023-12-14 19:17] VITALS: BP_SYST 123
--- NOTE | 2023-12-14 19:18 | NUR ---
RECEIVED CHANGE OF SHIFT REPORT FROM DAY SHIFT NURSE. PATIENT RESTING IN BED, EXIT ALARM ON, CALL LIGHT WITHIN PATIENT'S REACH. PATIENT DENIES ANY NEEDS AT THIS TIME. AT BEDSIDE.
--- NOTE | 2023-12-14 20:00 | NUR ---
PATIENT RESTING IN BED WITH EXIT ALARM ON, AT BEDSIDE. PATIENT DENIES ANY NEEDS OR COMPLAINTS AT THIS TIME. CAST TO LEFT FOREARM INTACT/CLEAN AND DRY. NO SWELLING TO LEFT HAND FINGERS. PATIENT COOPERATIVE AND RESPONSES APPROPRIATE IN CURRENT CONVERSATION.
[2023-12-15 05:52] VITALS: BP 111/70; PULSE 71; TEMP 98.6
--- NOTE | 2023-12-15 07:25 | NUR ---
Pt was sitting up in bed eating breakfast, assisted by , Janeth. Pt does not complain of pain at this time. No concerns at this time. Call light within reach. Bed alarm on.
--- NOTE | 2023-12-15 07:25 | NUR ---
CHANGE OF SHIFT REPORT GIVEN TO DAY SHIFT NURSECHU.
[2023-12-15 07:27] VITALS: BP_SYST 111
--- NOTE | 2023-12-15 08:57 | NUR ---
Pt sitting up in bed, awake and alert. , Janeth, at bedside. Pt does not comlain of pain at this time. No concerns at this time. PEG tube flushed with 30 cc of sterile water. This nurse assessed pt at time of medication administration. Pt tolerated medications well.
--- NOTE | 2023-12-15 15:05 | NUR ---
rice field worker met with patient and his to check in. Patient reports to be doing well. SW provided her contact information. SW reminded patient and of family meeting for tomorrow at 2 pm. No questions or concerns at this time.
[2023-12-15 16:42] VITALS: BP 105/66; PULSE 85; TEMP 98.4
[2023-12-15 19:17] VITALS: BP_SYST 105
--- NOTE | 2023-12-15 19:17 | NUR ---
RECEIVED CHANGE OF SHIFT REPORT FROM DAY SHIFT NURSE. PATIENT SITTING UP AT SIDE OF BED, IN ROOM. PATIENT WITH NO NEEDS REPORTED AT THIS TIME. EXIT ALARM ON WHEN LAYING IN BED, CALL LIGHT WITHIN PATIENT AND SPOUSE'S REACH.
--- NOTE | 2023-12-15 20:00 | NUR ---
CAST TO LEFT WRIST IN PLACE AND INTACT. PATIENT DENIES CHEST PAIN/SHORTNESS OF BREATHE/NAUSEA AT THIS TIME. SPEAKS CLEARLY AND RESPONDS APPROPRIATELY IN CONVERSATION WITH STAFF. DENIES ANY SWALLOWING PROBLEMS OR DECREASED APPETITE. PRESENT IN ROOM WITH NO QUESTIONS OR CONCERNS VOICED.
--- NOTE | 2023-12-15 20:15 | NUR ---
DENIES URGE TO VOID AT THIS TIME. PATIENT RESTING IN BED, EXIT ALARM ON, CALL LIGHT WITHIN PATIENT'S REACH. SPOUSE NOT IN ROOM AT THIS TIME.
--- NOTE | 2023-12-16 02:34 | NUR ---
UP TO BATHROOM WITH ASST X1 NURSING, SOME UNSTEADINESS WHEN IN BATHROOM, LEANED AGAINST WALL PRIOR TO TURNING TO SIT DOWN ON TOILET. FOLLOWS COMMANDS, RESPONDS APPROPRIATELY TO QUESTIONS AT THIS TIME. DENIES ANY DISCOMFORT OR CONCERNS. PRESENT IN ROOM. BED EXIT ALARM ON WHEN BACK IN BED, CALL LIGHT WITHIN PATIENT'S REACH.
[2023-12-16 05:34] VITALS: BP 109/69; PULSE 78; TEMP 98.1
--- NOTE | 2023-12-16 06:56 | NUR ---
CHANGE OF SHIFT REPORT GIVEN TO DAY SHIFT NURSES, LEONORA
[2023-12-16 07:45] VITALS: BP_SYST 109
--- NOTE | 2023-12-16 09:19 | NUR ---
PT AWAKE AND RESTING IN BED. AT BEDSIDE. SCHEDULED MEDS GIVEN PER eMAR. CAST ON LEFT WRIST. CONCERNS ABOUT CAST REMOVAL. BINDER AROUND ABDOMEN. PEG TUBE IN PLACE. DENIES PAIN. BED ALARM ON AND CALL LIGHT WITHIN REACH.
--- NOTE | 2023-12-16 09:22 | NUR ---
ORTHO OFFICE NOTIFIED OF CONSULT.
--- NOTE | 2023-12-16 15:23 | NUR ---
dry dip worker attended patient's family meeting with his , mother in law, father in law and IPR team to discuss discharge planning and his progress. Patient has improved and it is recommended for discharge on with outpatient PT, OT and ST. Patient and family are in agreement and would like to have outpatient at the [facility]. SW student faxed outpatient referral to [place] outpatient services. Discharge plan: Home with outpatient PT,ST and OT
--- NOTE | 2023-12-16 16:59 | NUR ---
PT PEG TUBE SITE CLEANED PER FAMILY REQUEST. PEG TUBE FLUSHED WELL WITH 30ML OF STERILE WATER. DENIES ANY OTHER NEEDS AT THIS TIME.
[2023-12-16 17:42] VITALS: BP 116/76; PULSE 89; TEMP 98.3
--- NOTE | 2023-12-16 18:44 | NUR ---
PT REPORTS 10/10 GENERALIZED ABDOMINAL PAIN. PT REPORTED LAST VOID AND LARGE BM ABOUT 20 MIN AGO. TYLENOL PRN GIVEN PER eMAR. POSSIBLE BLADDER SCAN IF SX PERSIST OR WORSEN.
[2023-12-16] MEDS ORDERED: Ondansetron 4 MG/2 ML VIAL IV PRN (20:00)
[2023-12-17 05:19] VITALS: BP 109/70; PULSE 55; TEMP 97.5
[2023-12-17 06:40] VITALS: BP_SYST 109
--- NOTE | 2023-12-17 07:13 | NUR ---
Pt resting comfortably in bed. , Janeth, at bedside. No concerns at this time. Bed alarm set. Call light within reach. Tele-sitter active.
--- NOTE | 2023-12-17 08:16 | NUR ---
SPOKE WITH WITH SYLVIE COMER REGARDING ORTHO CONSULT. STATES THEY WILL SEE THIS AFTERNOON.
--- NOTE | 2023-12-17 08:53 | NUR ---
Pt awake, sitting up in bed, at time of med pass/assessment. , Janeth, at bed side. Pt does not complain of pain at this time. No other concerns at this time. Peg tube flushed with 30 mls of sterile water. Pt tolerated well. Bed alarm on. Call light within reach. Tele-sitter in place.
--- NOTE | 2023-12-17 14:15 | NUR ---
case management social worker and DOMINIC Student attended the IPR team conference to discuss patient s progress and potential discharge date. Patient has made improvement, so the team scheduled discharge date for 12/18/23 with OP PT, ST, OT. DOMINIC Student faxed referral to [facility] and scheduled OP PT for 12/23/23 at 11 am and was notified they will schedule the OP OT and ST at the PT appointment. DOMINIC met with patient and his to review and provide copy of the IPR team conference notes. Patient was sleeping but his had no questions or concerns. DOMINIC provided the appointment information for the PT and explained they would schedule the OT and ST at this first appointment. No further questions or concerns at this time. Discharge plan: Home with OP PT, OT and ST
[2023-12-17 18:36] VITALS: BP 119/73; PULSE 88; TEMP 98.6
[2023-12-17 19:00] VITALS: BP_SYST 119
--- NOTE | 2023-12-17 20:15 | NUR ---
Patient resting in bed with at bedside. Denies any pain or needs at this time. Assessment complete. PEG tube flushed without complications. Call light and personal items in reach. Bed in low position and bed alarm on.
[2023-12-18 05:34] VITALS: BP 116/76; PULSE 63; TEMP 98.2
[2023-12-18 07:16] VITALS: BP_SYST 116
[2023-12-18] MEDS ORDERED: FLOMAX 0.40.4 MG/CAP PO (08:42)
--- NOTE | 2023-12-18 08:58 | NUR ---
PT RESTING IN BED, ALERT AND ORIENTEDX4. NO COMPLAINTS OF PAIN AT THIS TIME. IS AT BEDSIDE. ASSESSED AND GAVE MORNING MEDS. PT WILL DISCHARGE TODAY. NO OTHER COMPLAINTS AT THIS TIME. CALL LIGHT WITHIN REACH.
--- NOTE | 2023-12-18 11:12 | NUR ---
PT HAS DISCHARGE ORDERS. WENT OVER DISCHARGE PAPERWORK WITH PT AND PT. PT WAS ESCORTED OUT BY [facility]
--- NOTE | 2023-12-18 11:44 | NUR ---
factory process workers faxed discharge orders to [facility] for OP services. Discharge Plan: home today with OP at [facility]
--- NOTE | 2023-12-19 14:22 | NUR ---
Discharge QIM scores were reviewed by the team. Code of 5 chosen for eating was determined by team discussion to be the most usual performance for this patient during the discharge assessment period. Code of 4 chosen for oral hygiene was determined by team discussion to be the most usual performance for this patient during the discharge assessment period. Code of 4 chosen for shower/bathe self was determined by team discussion to be the most usual performance for this patient during the discharge assessment period. Code of 5 chosen for upper body dressing was determined by team discussion to be the most usual performance for this patient during the discharge assessment period. Code of 4 chosen for lower body dressing was determined by team discussion to be the most usual performance for this patient during the discharge assessment period. Code of 5 chosen for putting on/taking off footwear was determined by team discussion to be the most usual performance for this patient during the discharge assessment period. Code of 6 chosen for rolling left to right was determined by team discussion to be the most usual performance for this patient during the discharge assessment period. Code of 6 chosen for sit to lying was determined by team discussion to be the most usual performance for this patient during the discharge assessment period. Code of 6 chosen for lying to sitting was determined by team discussion to be the most usual performance for this patient during the discharge assessment period. Code of 6 chosen for sit to stand was determined by team discussion to be the most usual performance for this patient during the discharge assessment period. Code of 6 chosen for chair to bed was determined by team discussion to be the most usual performance for this patient during the discharge assessment period. Code of 6 chosen for walking 10 feet was determined by team discussion to be the most usual performance for this patient during the discharge assessment period. Code of 6 chosen for walking 50 feet w/ 2 turns was determined by team discussion to be the most usual performance before interventions for this patient during the discharge assessment period.--PD Abilio
== END 2023-12-18 11:13 | disposition home or self-care (01) | DRG 949 ==
PROVIDERS: Internal Medicine; Physician Assistant; ADMIT Physical Medicine & Rehabilitation Sports Medicine
DX: S06.2XAD Diffuse traumatic brain injury with loss of consciousness status unknown, subsequent encounter (principal); J96.01 Acute respiratory failure with hypoxia; N39.0 Urinary tract infection, site not specified; S06.5XAD Traumatic subdural hemorrhage with loss of consciousness status unknown, subsequent encounter; S02.40CD Maxillary fracture, right side, subsequent encounter for fracture with routine healing; S62.307D Unspecified fracture of fifth metacarpal bone, left hand, subsequent encounter for fracture with routine healing; S62.305D Unspecified fracture of fourth metacarpal bone, left hand, subsequent encounter for fracture with routine healing; S52.602D Unspecified fracture of lower end of left ulna, subsequent encounter for closed fracture with routine healing; S52.502D Unspecified fracture of the lower end of left radius, subsequent encounter for closed fracture with routine healing; R26.89 Other abnormalities of gait and mobility; R33.9 Retention of urine, unspecified; R13.10 Dysphagia, unspecified; Z43.0 Encounter for attention to tracheostomy; Z87.891 Personal history of nicotine dependence; Z74.09 Other reduced mobility; V29 Motorcycle rider injured in other and unspecified transport accidents; Y92.410 Unspecified street and highway as the place of occurrence of the external cause; F80.1 Expressive language disorder; R40.0 Somnolence; K59.00 Constipation, unspecified
CPT/HCPCS: A9284; J1650

== ENCOUNTER → 2024-02-10 | Outpatient (CLI) | payer MEDICAID ==
[~2024-02-10] MED LIST: DESYREL 50MG50 MG PO; FLOMAX 0.40.4 MG/CAP PO; NEURONTIN100 MG/CAP PO; OXYCODONE H5 MG/5 ML PO; SEROQUEL 1100 MG/TAB PO; SEROQUEL 2525 MG/TAB PO; SYMMETREL100 MG PO; TYLENOL 500MG500 MG PO
== END ==
LOC: MHCPAIN 11:14
DX: M25.421 Effusion, right elbow (principal); M54.2 Cervicalgia; S06.9X0S Unspecified intracranial injury without loss of consciousness, sequela; S13.4XXD Sprain of ligaments of cervical spine, subsequent encounter
CPT/HCPCS: G0463